=== PATIENT | female | born 1955 ===

== ENCOUNTER 2018-04-05 09:48 | Emergency (ER) | payer OTHER ==
--- NOTE | 2018-04-05 10:33 | ED ---
Abdominal Pain/Female - HPI Summary HPI Summary: This is elaine Alfred documenting for attending Matthew Farmer MD. This patient is a 62 year old F presenting to ED with a chief complaint of L flank pain since 0900 this morning. When she woke up this morning, she had urgency to urinate after breakfast. The patient was starting a cycle race and was in a couple miles when she developed the pain. She had to stop the race and sit on the sidewalk due to the pain. The CC is described as intermittent. The patient rates the pain 8/10 in severity at its worst. Currently, the pain is gone but still feels urgency. Symptoms aggravated by nothing. Symptoms alleviated by nothing. Patient reports nausea and diaphoresis. Patient denies vomiting. No PMHx of kidney stones. - History of Current Complaint Chief Complaint: EDFlankPain Stated Complaint: LT FLANK PAIN,NAUSEA Time Seen by Provider: 04/05/18 10:08 Hx Obtained From: Patient Onset/Duration: Sudden Onset, Lasting Hours, Resolved Timing: Intermittent Episode Lasting Severity Initially: Moderate Severity Currently: Moderate Pain Intensity: 7 Pain Scale Used: 0-10 Numeric Location: Flank - left Aggravating Factor(s): Nothing Alleviating Factor(s): Nothing Associated Signs and Symptoms: Positive: Other: - Patient reports nausea and diaphoresis. Patient denies vomiting. Allergies/Adverse Reactions: Allergies Allergy/AdvReac Type Severity Reaction Status Date / Time No Known Allergies Allergy Verified 04/05/18 09:52 PMH/Surg Hx/FS Hx/Imm Hx Endocrine/Hematology History: Denies: Hx Diabetes Cardiovascular History: Denies: Hx Hypertension History: Reports: Other Problems/Disorders - bladder infections Infectious Disease History: No Infectious Disease History: Denies: Traveled Outside the [place] in Last 30 Days - Family History Known Family History: Negative: Cardiac Disease, Hypertension, Diabetes - Social History Alcohol Use: Rare Substance Use Type: Reports: None Smoking Status (MU): Never Smoked Tobacco Review of Systems Positive: Skin Diaphoresis Positive: Abdominal Pain - L flank pain, Nausea. Negative: Vomiting Positive: urgency All Other Systems Reviewed And Are Negative: Yes Physical Exam - Summary Physical Exam Summary: GENERAL: Patient is a well-developed and nourished FEMALE who is lying comfortable in the stretcher. Patient is not in any acute respiratory distress. HEAD AND FACE: Normocephalic EYES: PERRLA, EOMI x 2. EARS: Hearing grossly intact. MOUTH: Oropharynx within normal limits. NECK: Supple, trachea is midline, no adenopathy, no JVD, no carotid bruit. CHEST: Symmetric, no tenderness at palpation LUNGS: Clear to auscultation bilaterally. No wheezing or crackles. CVS: Regular rate and rhythm, S1 and S2 present, no murmurs or gallops appreciated. ABDOMEN: Soft, non-tender. Bowel sounds are normal. No abdominal abnormal pulsations. Mild left CVA tenderness. EXTREMITIES: Full ROM in all major joints, no edema, no cyanosis or clubbing. NEURO: Alert and oriented x 3. No acute neurological deficits. Speech is normal and follows commands. SKIN: Dry and warm Triage Information Reviewed: Yes Vital Signs On Initial Exam: Initial Vitals Temp Pulse Resp BP Pulse Ox 97.8 F 75 16 147/77 100 04/05/18 09:52 04/05/18 09:52 04/05/18 09:52 04/05/18 09:52 04/05/18 09:52 Vital Signs Reviewed: Yes Diagnostics - Vital Signs Vital Signs Temp Pulse Resp BP Pulse Ox 04/05/18 09:52 97.8 F 75 16 147/77 100 - Laboratory Result Diagrams: 04/05/18 10:38 04/05/18 10:38 Lab Statement: Any lab studies that have been ordered have been reviewed, and results considered in the medical decision making process. - CT Abd/pel CT CT Interpretation Completed By: Radiologist - Small hiatal hernia. No pathologic process of the alimentary tract evident. Negative for urolithiasis or obstructive uropathy. Small fat-containing LEFT inguinal hernia without inflammatory change. ED physician has reviewed this radiology report. Re-Evaluation - Re-Evaluation First Eval Re-Evaluation Time: 11:26 Comment: Patient is still reporting urgency. Discussed results of CT to her. She states the pain is similar to a bladder infection. She is traveling and is from [place]. She would like abx. Abdominal Pain Fem Course/Dx - Course Course Of Treatment: This patient is a 62 year old F presenting to ED with a chief complaint of L flank pain since 0900 this morning that is now resolved. Her workup is remarkable with her urine showing hematuria and 2+ leuks. CT abd/ pel did not demonstrate kidney stones or hydronephrosis, but did show fat contaning inguinal hernia. I suspect the patients sudden onset of pain is from a kidney stone that has passed especially given hematuria seen in UA. Patient still has urinary sx of urgency that feels similar to her previous UTIs. She is not from the area and so will not be able to await urine culture for definitive diagnosis and so she was sent home on Keflex. She is hemodynamically stable upon discharge. Strict return precautions given and she will otherwise follow up with her PCP. - Diagnoses Differential Diagnosis: Positive: Other - flank pain, inguinal hernia Provider Diagnoses: Flank pain, Inguinal hernia Discharge - Sign-Out/Discharge Documenting (check all that apply): Patient Departure - Discharge Plan Condition: Stable Disposition: HOME Prescriptions: Cephalexin CAP* [Keflex CAP*] 500 mg PO QID #20 cap Patient Education Materials: Inguinal Hernia (ED), Flank Pain (ED) Referrals: [facility] [Outside] (Please follow up with your primary care physician in 1-3 days.) Additional Instructions: RETURN TO THE EMERGENCY DEPARTMENT FOR CHANGING OR WORSENING SYMPTOMS. - Billing Disposition and Condition Condition: STABLE Disposition: Home
[2018-04-05 10:47] LABS: ABS Basophils 0 10^3/ul (0-0.2); ABS Eosinophils 0.1 10^3/ul (0-0.6); ABS Lymphocytes 1.2 10^3/ul (1.0-4.8); ABS Monocytes 0.3 10^3/ul (0-0.8); ABS Neutrophils 5.8 10^3/ul (1.5-7.7); ABS Nucleated RBC 0 10^3/ul; Eosinophil % 0.7 % (0-6); Hematocrit 41 % (35-47); Hemoglobin 14.3 g/dl (12.0-16.0); Lymphocyte % 16.4 % (25-47); Mean Corpuscular HGB Conc 35 g/dl (31-36); Mean Corpuscular Hemoglobin 30 pg (27-31); Mean Corpuscular Volume 86 fL (80-97); Mean Platelet Volume 9.2 um3 (7.4-10.4); Nucleated Red Blood Cells % 0; Platelet Count 204 10^3/ul (150-450); Red Blood Count 4.81 10^6/ul (4.00-5.40); Red Cell Distribution Width 13 % (10.5-15); White Blood Count 7.4 10^3/ul (3.5-10.8)
[2018-04-05 10:54] LABS: Urine Appearance Cloudy; Urine Blood 3+ (Negative); Urine Color Yellow; Urine Ketones Trace (Negative); Urine Protein Negative (Negative); Urine Red Blood Cell 3+(>10/hpf) (Absent); Urine Specific Gravity 1.024 (1.010-1.030); Urine Urobilinogen Negative (Negative); Urine White Blood Cell 1+(6-10/hpf) (Absent)
--- NOTE | 2018-04-05 11:16 | RAD ---
INDICATION: LEFT side flank pain, nausea, diaphoresis occurring during a cycling race. COMPARISON: No relevant prior exams available on the [facility] PACS for comparison. TECHNIQUE: Multidetector CT images were obtained from the lung bases to the ischial tuberosities. Evaluation of the viscera is limited without IV contrast. Multiplanar reformation. REPORT: Visualized inferior thorax is remarkable for bilateral breast augmentation prostheses. Grossly clear lung bases. Negative for cardiomegaly or pericardial effusion. Small hiatal hernia. 0.9 cm simple appearing cyst at the LEFT medial hepatic segment. No suspicious focal hepatic lesions. Upper normal size 18.5 cm cephalocaudal liver. No CT abnormality of the gallbladder. Negative for biliary dilatation. Unremarkable pancreas and spleen. Aside from the hiatal hernia the upper GI is unremarkable. No CT abnormality of the small bowel loops or diminutive appendix. Unremarkable colon. The descending is largely decompressed. Negative for ascites or free air. Small fat-containing LEFT inguinal hernia without inflammatory change. Normal adrenal glands. Unremarkable kidneys, ureters, and largely decompressed urinary bladder. Negative for urolithiasis or hydronephrosis. Pelvic phleboliths noted. Unremarkable uterus and adnexal regions. Negative for lymphadenopathy. Normal diameter abdominal aorta and iliac arteries. Partially decompressed IVC. Negative for superficial or deep soft tissue plane hematoma. Negative for fracture or articular malalignment. L4-L5 and L5-S1 facet joint osteoarthritis. Degenerative arthropathy at the pubic symphysis and LEFT sacroiliac joint. Negative for suspicious focal osseous lesions. IMPRESSION: #. Small hiatal hernia. #. No pathologic process of the alimentary tract evident. #. Negative for urolithiasis or obstructive uropathy. #. Small fat-containing LEFT inguinal hernia without inflammatory change.
[2018-04-05 11:49] VITALS: BP 147/88
== END 2018-04-05 11:46 | disposition home or self-care (01) ==
LOC: ED 09:48
DX: R10.9 Unspecified abdominal pain (principal); K40.90 Unilateral inguinal hernia, without obstruction or gangrene, not specified as recurrent; K44.9 Diaphragmatic hernia without obstruction or gangrene; R39.15 Urgency of urination; K76.89 Other specified diseases of liver
CPT/HCPCS: 36415; 74176; 80053; 81003; 81015; 83605; 83690; 85025; 86140; 87086; 99282